=== PATIENT | male | born 1960 | race Caucasian/White ===

== ENCOUNTER 2021-01-23 17:49 | Emergency (ER) | payer OTHER ==
[~2021-01-23] VITALS: Ht 177.8 cm; Wt 93.0 kg
== END 2021-01-23 21:56 | disposition home or self-care (01) ==
LOC: ER 17:49
DX: S40.012A Contusion of left shoulder, initial encounter (principal); W22.8XXA Striking against or struck by other objects, initial encounter; Y93.89 Activity, other specified; Y92.832 Beach as the place of occurrence of the external cause; Y99.8 Other external cause status